=== PATIENT | female | born 1980 | race African-American/Black ===

== ENCOUNTER 2022-05-04 08:35 | Emergency (ER) | payer OTHER, SELFPAY ==
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
[2022-05-04 08:38] VITALS: BP 150/75; PULSE 88; RESP 18; TEMP 36.7; O2SAT 100
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
[2022-05-04] MEDS: fentaNYL CITRATE INJ (*CRX) 100 MCG/2 ML VIAL 50 MCG IV PUSH ×2 (09:24→10:28)
[2022-05-04] MEDS: SODIUM CHLORIDE 0.9% IV 1,000 ML 999 ML IV CONT (09:24)
[2022-05-04 09:35] LABS: Eosinophils Percent Auto 0.5 % (0-4.4); Hematocrit 28.3 % (37.0-47.0); Hemoglobin 9.5 g/dL (12.0-15.0); Immature Granulocyte Absolute 0.01 K/mm3 (0.00-0.031); Immature Granulocyte Percent A 0.5 % (0-0.5); Immature Platelet Fraction Pct 3.3 % (0.9-11.2); Lymphocytes Absolute Auto 0.56 K/mm3 (0.9-3.2); Lymphocytes Percent Auto 25.2 % (18.3-44.2); Mean Corpuscular HGB Conc 33.6 g/dl (32-36); Mean Corpuscular Hemoglobin 38.3 pg (26-34); Mean Corpuscular Volume 114.1 fl (80-100); Mean Platelet Volume 9.9 fl (7.4-10.4); Monocytes Absolute Auto 0.2 K/mm3 (0.1-0.6); Monocytes Percent Auto 10.4 % (2.6-8.5); Neutrophils Absolute Auto 1.4 K/mm3 (1.3-6.7); Neutrophils Percent Auto 63.4 % (45.5-73.1); Platelet Count Result 77 k/mm3 (150-375); Red Blood Count 2.48 M/mm3 (4.2-5.4); Red Cell Distribution Width 14.6 % (11.5-14.5); White Blood Count 2.2 K/mm3 (4.5-10.0)
[2022-05-04 09:39] LABS: Partial Thromboplastin Time 28.5 SECONDS (22.3-36.8)
[2022-05-04 09:42] LABS: Alanine Aminotransferase 16 U/L (6-35); Albumin Level 4.6 g/dL (3.5-5.1); Alkaline Phosphatase 80 U/L (38-126); Anion Gap 3 mmol/L (8-16); Aspartate Amino Transferase 30 U/L (14-36); Bilirubin,Total 0.7 mg/dL (0.2-1.3); Blood Urea Nitrogen 10 mg/dL (7-17); Calcium 9.3 mg/dL (8.4-10.2); Carbon Dioxide 26 mmol/L (22-30); Chloride 108 mmol/L (98-107); Estimated CRCL calculation 113 ml/min; Estimated Glomerular Filt Rate > 60; Glucose 105 mg/dL (65-110); Potassium 3.6 mmol/L (3.4-5.0); Sodium 137 mmol/L (137-145)
[2022-05-04] MEDS: diazePAM INJ (*CRX) 10 MG/2 ML SYRINGE 5 MG IV PUSH (11:53)
[2022-05-04] MEDS: KETOROLAC 30 MG/ML VIAL (*BKC) IV PUSH (11:54)
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
== END 2022-05-04 13:09 | disposition home or self-care (01) ==
PROVIDERS: Emergency Provider Emergency Medicine
DX: S39.012A Strain of muscle, fascia and tendon of lower back, initial encounter (principal); S30.1XXA Contusion of abdominal wall, initial encounter; S20.211A Contusion of right front wall of thorax, initial encounter; K52.9 Noninfective gastroenteritis and colitis, unspecified; D64.9 Anemia, unspecified; V49.40XA Driver injured in collision with unspecified motor vehicles in traffic accident, initial encounter; N20.0 Calculus of kidney
CPT/HCPCS: 36415; 71260; 72129; 72132; 73502; 74177; 80053; 81025; 85025; 85055; 85610; 85730; 96361; 96374; 96375; 99284; J1885; J3010; J3360; J7030; Q9967